=== PATIENT | female | born 1985 | race African-American/Black ===

== ENCOUNTER 2022-03-09 06:14 | Emergency (ER) | payer SELFPAY ==
--- NOTE | 2022-03-09 06:28 | NUR ---
CALLED TO TRIAGE NO ANSWER
--- NOTE | 2022-03-09 06:31 | NUR ---
CALLED ONCE AGAIN FOR TRAIGE STILL NO ANSWER.
== END 2022-03-09 06:32 | disposition left against medical advice (07) ==
LOC: ER 06:16
DX: Z53.21 Procedure and treatment not carried out due to patient leaving prior to being seen by health care provider (principal)